=== PATIENT | male | born 1955 | race Caucasian/White ===

== ENCOUNTER → 2019-09-19 | Outpatient (CLI) | payer OTHER ==
[~2019-09-19] MED LIST: EXFORGE HCT 101 EAC2
== END | disposition home or self-care (01) ==
LOC: MRI 14:15
DX: M25.512 Pain in left shoulder (principal)
CPT/HCPCS: 73221

== ENCOUNTER 2019-10-03 12:37 | Outpatient (CLI) | payer OTHER | END 2019-10-03 12:38 | disposition home or self-care (01) | LOC: RAD 12:37 | DX: M19.012 Primary osteoarthritis, left shoulder (principal) ==

== ENCOUNTER 2020-02-25 12:15 | Emergency (ER) | payer OTHER ==
[~2020-02-25] VITALS: Ht 177.8 cm; Wt 87.5 kg
== END 2020-02-26 13:04 | disposition home or self-care (01) ==
LOC: ER 12:15
DX: F06.4 Anxiety disorder due to known physiological condition (principal); F10.20 Alcohol dependence, uncomplicated

== ENCOUNTER → 2020-05-28 | Emergency (ER) | payer OTHER ==
[~2020-05-28] VITALS: Ht 177.8 cm; Wt 88.5 kg
[~2020-05-28] MED LIST changes: +AMLOD-VALSA-HC1 EACH PO; +ATORVASTATIN CA10 MG PO; +FOLIC ACID1 MG PO; +METFORMIN HCL500 M4 PO; +PANTOPRAZOLE SO40 MG PO; +VENTOLIN HFA18 GM IH
== END | disposition left against medical advice (07) ==
LOC: ER 14:59
DX: M25.561 Pain in right knee (principal); G89.11 Acute pain due to trauma

== ENCOUNTER 2020-05-29 12:09 | Emergency (ER) | payer OTHER ==
[~2020-05-29] VITALS: Ht 177.8 cm; Wt 88.5 kg
== END 2020-05-29 16:27 | disposition home or self-care (01) ==
LOC: ER 12:09
DX: S00.31XA Abrasion of nose, initial encounter (principal); S05.11XA Contusion of eyeball and orbital tissues, right eye, initial encounter; S40.011A Contusion of right shoulder, initial encounter; M25.561 Pain in right knee; F10.20 Alcohol dependence, uncomplicated; W18.09XA Striking against other object with subsequent fall, initial encounter; Y90.9 Presence of alcohol in blood, level not specified; Y93.89 Activity, other specified; Y92.018 Other place in single-family (private) house as the place of occurrence of the external cause; Y99.8 Other external cause status

== ENCOUNTER 2020-08-31 14:57 | Outpatient (CLI) | payer OTHER ==
[~2020-08-31 14:57] MED LIST changes: +VOLTAREN100 GM TOP
== END 2020-08-31 15:19 | disposition home or self-care (01) ==
LOC: MRI 14:57
PROVIDERS: ATTEND Physical Medicine & Rehabilitation
DX: S83.241A Other tear of medial meniscus, current injury, right knee, initial encounter (principal); M17.11 Unilateral primary osteoarthritis, right knee; M25.261 Flail joint, right knee
CPT/HCPCS: 73721

== ENCOUNTER 2021-01-04 06:35 | Outpatient (CLI) | payer OTHER | END 2021-01-04 06:40 | disposition home or self-care (01) | LOC: SONOGRAMA 06:35 → MAMO-SONO 07:15 | PROVIDERS: ATTEND Internal Medicine | DX: R10.9 Unspecified abdominal pain (principal); N40.1 Benign prostatic hyperplasia with lower urinary tract symptoms; F10.24 Alcohol dependence with alcohol-induced mood disorder ==

== ENCOUNTER 2021-02-19 10:16 | Emergency (ER) | payer OTHER ==
[~2021-02-19] VITALS: Ht 177.8 cm; Wt 88.5 kg
[2021-02-19] MEDS ORDERED: CHLORDIAZEPOXID25 MG PO ×2 (10:33→11:43)
== END 2021-02-19 11:58 | disposition home or self-care (01) ==
LOC: ER 10:16
DX: G25.2 Other specified forms of tremor (principal); F10.20 Alcohol dependence, uncomplicated

== ENCOUNTER 2021-05-26 13:47 | Outpatient (CLI) | payer OTHER ==
[~2021-05-26 13:47] MED LIST changes: +CHLORDIAZEPOXID25 MG PO
== END 2021-05-26 13:52 | disposition home or self-care (01) ==
LOC: RAD 13:47
PROVIDERS: ATTEND Orthopaedic Surgery
DX: M25.561 Pain in right knee (principal); M25.562 Pain in left knee

== ENCOUNTER 2021-07-20 10:28 | Outpatient (CLI) | payer OTHER | END 2021-07-20 10:44 | disposition home or self-care (01) | LOC: MRI 10:28 | PROVIDERS: ATTEND Orthopaedic Surgery | DX: M25.561 Pain in right knee (principal) | CPT/HCPCS: 73721 ==

== ENCOUNTER 2021-09-17 11:27 | Outpatient (CLI) | payer OTHER | END 2021-09-17 11:30 | disposition home or self-care (01) | LOC: SONOGRAMA 11:27 | PROVIDERS: ATTEND Internal Medicine | DX: N20.0 Calculus of kidney (principal); N18.2 Chronic kidney disease, stage 2 (mild) ==

== ENCOUNTER 2021-10-21 14:36 | Outpatient (CLI) | payer OTHER | END 2021-10-21 14:44 | disposition home or self-care (01) | LOC: RAD 14:36 | PROVIDERS: ATTEND Orthopaedic Surgery | DX: M19.012 Primary osteoarthritis, left shoulder (principal) | CPT/HCPCS: 73221 ==

== ENCOUNTER 2022-04-13 11:34 | Outpatient (CLI) | payer OTHER | END 2022-04-13 11:35 | disposition home or self-care (01) | LOC: RAD 11:34 | PROVIDERS: ATTEND Orthopaedic Surgery | DX: M19.012 Primary osteoarthritis, left shoulder (principal) ==

== ENCOUNTER → 2022-08-08 07:14 | Outpatient (CLI) | payer OTHER | END | disposition home or self-care (01) | LOC: NUCLEAR 07:00 | PROVIDERS: ATTEND Internal Medicine | DX: I11.9 Hypertensive heart disease without heart failure (principal); I25.10 Atherosclerotic heart disease of native coronary artery without angina pectoris | CPT/HCPCS: 78452; 93017; A9500 ==

== ENCOUNTER → 2023-07-17 14:41 | Outpatient (CLI) | payer OTHER | END | disposition home or self-care (01) | LOC: LAB 14:41 | PROVIDERS: ATTEND Urology | DX: K43.9 Ventral hernia without obstruction or gangrene (principal) ==

== ENCOUNTER 2023-07-19 07:31 | Outpatient (CLI) | payer OTHER | END 2023-07-19 07:38 | disposition home or self-care (01) | LOC: TOM 07:31 | PROVIDERS: ATTEND Internal Medicine | DX: K43.9 Ventral hernia without obstruction or gangrene (principal) | CPT/HCPCS: 74177; Q9965 ==

== ENCOUNTER 2024-07-26 19:13 | Emergency (ER) | payer OTHER ==
[~2024-07-26] VITALS: Ht 177.8 cm; Wt 88.5 kg
[2024-07-26] MEDS ORDERED: KETOROLAC TROMETHAMINE 30 MG VIAL IM STA (23:00)
[2024-07-26] MEDS ORDERED: CEFTRIAXONE SODIUM 1,000 MG VIAL IM STA (23:00)
== END 2024-07-26 23:17 | disposition home or self-care (01) ==
LOC: ER 19:15
DX: R51.9 Headache, unspecified (principal); Z20.822 Contact with and (suspected) exposure to COVID-19
CPT/HCPCS: 36415; 70450; 96372; 99284; J0696; J1885

== ENCOUNTER 2024-12-30 13:46 | Outpatient (CLI) | payer OTHER | END 2024-12-30 13:52 | disposition home or self-care (01) | LOC: LAB 13:46 | DX: L02.91 Cutaneous abscess, unspecified (principal) ==